=== PATIENT | male | born 1955 | race Caucasian/White ===

== ENCOUNTER → 2016-08-24 | Day surgery (SDC) | payer BC ==
[~2016-08-24] MED LIST: BACLOFEN10 MG PO; CLARITIN10 M3 PO; FISH OIL 1,0001 CA2 PO; GNP GLUCOSAMIN PO; IBUPROFEN OTC PRN; KEFLEX250 M1 PO; MULTI VITAMIN1 EACH PO; MULTIVITAMIN1 UDCAP PO; PERCOCET5/325 PO; ULTRAM PO
--- NOTE | ~2016-08-24 | OR ---
Unit #: [id number] #: [id number] Patient: SANDRA KHOURY [id number] [address] [address] [id number] O MR#: [id number] NAME: SANDRA KHOURY ROOM: Date of Procedure: 08/24/2016 Admission Date: 08/24/2016 Surgeon: Rashid Zayas III, M.D. : 1955 Attending Physician: Rashid Zayas III, M.D. Referring Physician: Rashid Zayas III, M.D. Primary Care Physician: Dina Salinas M.D. OPERATIVE REPORT PREOPERATIVE DIAGNOSIS Screening colonoscopy. POSTOPERATIVE DIAGNOSIS Screening colonoscopy. POSTOPERATIVE FINDINGS Mild sigmoid diverticulosis. PROCEDURE PERFORMED Colonoscopy to cecum. ANESTHESIA 6 mg of Versed and 50 mg of Demerol. SPECIMENS None. COMPLICATIONS None apparent. INDICATIONS FOR PROCEDURE This is a 60-year-old gentleman, whose last colonoscopy was approximately 10 years ago, and was reportedly normal. He is here today for screening colonoscopy. DESCRIPTION OF PROCEDURE After consent was obtained, the patient was brought to the endoscopy suite and placed in the left lateral decubitus position. We titrated the above sedation and I performed a rectal exam, and I did not feel any masses. The scope was placed within the rectal vault. Air was insufflated and I navigated the scope all the way to the cecum without any difficulty. He had normal mucosa. No evidence of any polyps or masses, and he had some mild sigmoid diverticular disease. The scope was retroflexed within the rectum. No other masses were seen. The scope was then carefully withdrawn. The patient tolerated the procedure without any problems and returned to the recovery room in stable condition. Dictated by... Rashid Zayas III, M.D. Unit #: [id number] #: [id number] Patient: SANDRA KHOURY VCL/modl TD: 08/25/2016 01:02 JOB #: [id number] OPERATIVE REPORT Page 1 of 1 X Rashid Zayas III, MD X PROCEDURE OPERATIVE NOTE
== END | disposition home or self-care (01) ==
LOC: COPS 05:44
DX: Z12.11 Encounter for screening for malignant neoplasm of colon (principal); K57.30 Diverticulosis of large intestine without perforation or abscess without bleeding; K21.9 Gastro-esophageal reflux disease without esophagitis
CPT/HCPCS: J2175; J2250